=== PATIENT | female | born 1965 ===

== ENCOUNTER 2018-11-24 10:10 | Emergency (ER) | payer OTHER ==
[2018-11-24 11:23] VITALS: BMI 37.3
--- NOTE | 2018-11-24 11:25 | ED PDOC ---
Arrival/HPI <Jorge Alberto Joel - Last Filed: 11/24/18 12:23> - General Historian: Patient - History of Present Illness Narrative History of Present Illness (Text): 11/24/18 11:55 53 y/o venezuelan speaking F with PMHx of HTN, DM, kidney transplant, hemorrhoids presents to ED with complaints of R leg swelling in the medial tibial region that has been ongoing and progressively worsening over the past month. She reports she had swelling in the ankle region, and noticed the swelling has begun to rise along her R leg after her flight to [facility] from [place] about 3 weeks ago. She reports no surgery to that leg, but report L tibial surgery in 2015. She denies taking oral contraceptives, smoking. She also reports a history of hemorrhoids, and has previously noticed blood in the stool. She reports occasional subjective fevers. She denies chills, headache, dizziness, chest pain, palpitations, SOB, n/v/c/d/dysuria. PMD: None Time/Duration: Prior to Arrival Symptom Onset: Gradual Symptom Course: Unchanged Quality: Burning Context: Walking <Ab Awad - Last Filed: 11/24/18 15:46> - General Time Seen by Provider: 11/24/18 11:23 Past Medical History - Provider Review Nursing Documentation Reviewed: Yes <Ab Awad - Last Filed: 11/24/18 15:46> Family/Social History - Physician Review Nursing Documentation Reviewed: Yes Family/Social History: Diabetes, Hypertension <Ab Awad - Last Filed: 11/24/18 15:46> Allergies/Home Meds <Jorge Alberto Joel - Last Filed: 11/24/18 12:23> <Ab Awad - Last Filed: 11/24/18 15:46> Allergies/Adverse Reactions: Allergies No Known Allergies Allergy (Verified 11/24/18 11:23) Home Medications: Home Meds Medication Instructions Recorded Confirmed Insulin NPH Hum/Reg Insulin Hm 34 ml SC AMHS 11/24/18 11/24/18 [Humulin 70/30 70 U/ml-30 U/ml 10 ml] Lisinopril [Zestril] 10 mg PO DAILY 11/24/18 11/24/18 Metformin HCl [Glucophage] 850 mg PO BID 11/24/18 11/24/18 Tacrolimus [Prograf] 0.5 mg PO DAILY 11/24/18 11/24/18 amLODIPine [Norvasc] 10 mg PO DAILY 11/24/18 11/24/18 Review of Systems - Review of Systems Constitutional: Normal. absent: Fatigue Eyes: Normal ENT: Normal Respiratory: Normal. absent: SOB, Cough Cardiovascular: Normal. absent: Chest Pain, Palpitations Gastrointestinal: Normal. absent: Abdominal Pain, Constipation Genitourinary Female: Normal Musculoskeletal: Joint Swelling (R ankle) Skin: Other (acanthosis ) Neurological: Normal Endocrine: Normal Hemo/Lymphatic: Normal Psychiatric: Normal <Ab Awad - Last Filed: 11/24/18 15:46> Physical Exam Vital Signs Temp Pulse Resp BP Pulse Ox 11/24/18 11:23 98.6 F 70 18 151/84 H 98 <Jorge Alberto Joel - Last Filed: 11/24/18 12:23> Vital Signs Reviewed: Yes Temperature: Afebrile Blood Pressure: Hypertensive Pulse: Regular Respiratory Rate: Normal Appearance: Positive for: Well-Appearing, Non-Toxic, Comfortable Pain Distress: None Mental Status: Positive for: Alert and Oriented X 3 - Systems Exam Head: Present: Atraumatic, Normocephalic Pupils: Present: PERRL Extroacular Muscles: Present: EOMI Conjunctiva: Present: Normal Mouth: Present: Moist Mucous Membranes Neck: Present: Normal Range of Motion Respiratory/Chest: Present: Clear to Auscultation, Good Air Exchange. No: Respiratory Distress, Accessory Muscle Use Cardiovascular: Present: Murmurs (3/6 holosystolic murmur in aortic/pulmonic region), Normal S1, S2 Abdomen: No: Tenderness, Distention, Peritoneal Signs Back: Present: Normal Inspection Upper Extremity: Present: Normal Inspection. No: Cyanosis, Edema Lower Extremity: Present: Edema, CALF TENDERNESS (R sided), NORMAL PULSES, Tenderness, Swelling (1+ bilaterally), Neurovascularly Intact, Capillary Refill < 2 s. No: Temperature Abnormalties Neurological: Present: GCS=15, CN II-XII Intact, Speech Normal Skin: Present: Warm, Dry, Normal Color. No: Rashes Psychiatric: Present: Alert, Oriented x 3, Normal Insight, Normal Concentration <Ab Awad - Last Filed: 11/24/18 15:46> Medical Decision Making ED Course and Treatment: 11/24/18 12:24 Seen and examined with the resident. Our history and physical exam reveals a woman complaining of approximately one month history of bilateral lower extremity pain. She recently arrived here from the [place]. Family translates. No chest pain or dyspnea. There is minimal if any edema. She does have some bilateral wilkerson and calf tenderness. - RAD Interpretation Radiology Orders: 11/24/18 12:07 DUPLEX LOWER EXTRM VEIN BILAT [US] Stat <Jorge Alberto Joel - Last Filed: 11/24/18 12:23> ED Course and Treatment: 11/24/18 12:04 Impression: 53 y/o F with PMHx of HTN, DM, kidney transplant, hemorrhoids presents to ED with complaints of R leg swelling that's been ongoing for about 1 month Prior notes and results have been reviewed Differential diagnosis included but is not limited to; RLE DVT RLE cellulitis Plan: Labs EKG coags B/L LE u/s Progress Note: B/l DVT u/s negative <Ab Awad - Last Filed: 11/24/18 15:46> - PA / CAN [employer]NER / Resident Statement / has reviewed & agrees with the documentation as recorded. / has examined the patient and agrees with the treatment plan. <Ab Awad - Last Filed: 11/24/18 15:46> Disposition/Present on Arrival <Jorge Alberto Joel - Last Filed: 11/24/18 12:23> - Present on Arrival Any Indicators Present on Arrival: Yes History of DVT/PE: No History of Uncontrolled Diabetes: Yes Urinary Catheter: No History of Decub. Ulcer: No - Disposition Have Diagnosis and Disposition been Completed?: Yes Disposition Time: 14:41 <Ab Awad - Last Filed: 11/24/18 15:46> - Disposition Diagnosis: Venous insufficiency Disposition: HOME/ ROUTINE Patient Problems: Current Active Problems Problem Status Onset Venous insufficiency Acute Condition: GOOD Discharge Instructions (ExitCare): Varicose Veins (DC) Additional Instructions: Diana Bennett, thank you for letting us take care of you today. The emergency medical care you received today was directed at your acute symptoms. If you were prescribed any medication, please fill it and take as directed. It may take several days for your symptoms to resolve. Return to the Emergency Department if your symptoms worsen, do not improve, or if you have any other problems. Please contact your doctor or call one of the physicians/clinics you have been referred to that are listed on the Patient Visit Information form that is included in your discharge packet. Bring any paperwork you were given at discharge with you along with any medications you are taking to your follow up visit. Our treatment cannot replace ongoing medical care by a primary care provider outside of the emergency department. Please purchase "compression socks" from any pharmacy for treatment of venous insufficiency. Referrals: Priyanka Cross MD [Medical Doctor] - Follow up with primary
[2018-11-24 11:33] VITALS: BP 151/84; PULSE 70; RESP 18; TEMP 98.6; O2SAT 98
[2018-11-24 12:29] LABS: BASO # 0.02 K/mm3 (0.0-2.0); BASO % 0.3 % (0.0-3.0); EOS # 0.2 (0.0-0.7); EOS % 1.9 % (1.5-5.0); GRAN # 4.65 (1.4-6.5); GRAN % 58.6 % (50.0-68.0); LYMPH # 2.7 (1.2-3.4); LYMPH % 33.5 % (22.0-35.0); MEAN CORPUSCULAR HEMOGLOBIN 26.8 pg (25.0-35.0); MEAN CORPUSCULAR HGB CONC 30.8 g/dl (31.0-37.0); MEAN PLATELET VOLUME 9.5 fl (7.0-11.0); MONO # 0.5 (0.1-0.6); MONO % 5.7 % (1.0-6.0); RBC 4.47 10^6/uL (3.5-6.1); RED CELL DISTRIBUTION WIDTH 13.5 % (11.5-14.5); WHITE BLOOD COUNT 7.9 10^3/uL (4.5-11.0)
[2018-11-24 12:40] LABS: INR 1.1; PROTHROMBIN TIME 12.7 SECONDS (9.4-12.5)
[2018-11-24 12:47] LABS: URINE BILIRUBIN NEGATIVE (NEGATIVE); URINE BLOOD TRACE-INTACT (NEGATIVE); URINE GLUCOSE (UA) >=1000 mg/dL (NEGATIVE); URINE LEUKOCYTE ESTERASE NEGATIVE Leu/uL (NEGATIVE); URINE PROTEIN 100 mg/dL (<30 mg/dL); URINE UROBILINOGEN 0.2 E.U./dL (<1 E.U./dL)
[2018-11-24 12:48] LABS: URINE COLOR YELLOW (YELLOW)
[2018-11-24 12:49] LABS: URINE APPEARANCE CLEAR (CLEAR)
[2018-11-24 12:51] LABS: B-TYPE NATRIURETIC PEPTIDE 290 pg/mL (0-450)
[2018-11-24 12:54] LABS: ALB/GLOB RATIO 0.9 (1.1-1.8); ALBUMIN 3.7 g/dL (3.0-4.8); ALT/SGPT 13 U/L (7-56); AST/SGOT 19 U/L (14-36); BLOOD UREA NITROGEN 16 mg/dL (7-21); CALCIUM 9.4 mg/dL (8.4-10.5); GFR NON-AFRICAN AMERICAN > 60
[2018-11-24 12:59] LABS: URINE BACTERIA FEW /hpf; URINE RBC 0 - 2 /hpf (0-2); URINE WBC 0 - 2 /hpf (0-6)
[2018-11-24] MEDS ORDERED: Insulin Regular 1 UNITS/0.01 ML ML SC STA (13:41)
--- NOTE | 2018-11-24 17:11 | US ---
HISTORY: Leg pain and swelling. Evaluate for DVT PHYSICIAN(S): Raymon Fernandes MD. TECHNIQUE: Duplex sonography and color-flow Doppler with graded compression were used to evaluate the deep venous systems of both lower extremities. FINDINGS: The visualized deep venous systems of both lower extremities are sonographically normal and compressible. Normal wave forms and augmentation are seen. There is no sonographic evidence for deep venous thrombosis in the visualized segments of both lower extremities. IMPRESSION: No sonographic evidence for deep venous thrombosis in the visualized segments of both lower extremities.
== END 2018-11-24 22:54 | disposition home or self-care (01) ==
LOC: ED 10:10
DX: I87.2 Venous insufficiency (chronic) (peripheral) (principal); I10 Essential (primary) hypertension; E11.9 Type 2 diabetes mellitus without complications; Z94.0 Kidney transplant status